=== PATIENT | male | born 1955 | race Caucasian/White ===

== ENCOUNTER 2020-08-25 13:45 | Emergency (ER) | payer BC ==
[~2020-08-25] VITALS: Ht 170.2 cm; Wt 65.8 kg
--- NOTE | 2020-08-25 13:55 | NUR ---
ED Nurse Note: Patient was BIBA due to fall, patient c/o right wrist pain 10/10. Stated painful to move the arm denies any loc. Patient presented with swollen right arm, AAO x4, VSS at this time.
[2020-08-25 13:58] VITALS: BP 156/88
[2020-08-25] MEDS ORDERED: HYDROcodone/Acetamin 5/325 tab ORAL ONE (14:00)
--- NOTE | 2020-08-25 14:40 | NUR ---
ED Nurse Note: X ray at bed side
[2020-08-25] MEDS ORDERED: Bupivacaine 0.5% Inj 30 ml vial INJ ONE (15:00)
--- NOTE | 2020-08-25 15:01 | NUR ---
ED Nurse Note: Patient's right arm was placed in a finger trap
--- NOTE | 2020-08-25 16:16 | NUR ---
ED Nurse Note: sugar tounge was applyed by MARIA M Ospina and Cliff, patient tolerated procedure well
--- NOTE | 2020-08-25 16:28 | NUR ---
ED Nurse Note: X ray at bed side
--- NOTE | 2020-08-25 16:47 | Emergency Room Report ---
History of Present Illness General Chief Complaint: Upper Extremity Injury Source: Patient Present Illness HPI 64 YO male presents to the ED CO 10/10 in severity right wrist pain and deformity after s/p fall from 6ft ladder in his backyard. Pt. reports he is right hand dominant. Pt. denies hitting his head or having LOC. He denies midline neck or back pain. Pt. reports mild 3/10 in severity ttp to the left kn ee. he reports he is weight bearing and ambulatory. Pt. denies taking blood thinning medications. He denies paresthesias. He denies incontinence. Allergies: Coded Allergies: No Known Allergies (Unverified , 08/25/20) COVID-19 Screening Contact w/high risk pt: No Experienced COVID-19 symptoms?: No COVID-19 Testing performed [employer]: No Patient History Past Medical History: see triage record Past Surgical History: none Pertinent Family History: none Reviewed Nursing Documentation: PMH: Agreed; PSxH: Agreed Review of Systems All Other Systems: negative except mentioned in HPI Physical Exam Vital Signs Date Time Temp Pulse Resp B/P (MAP) Pulse Ox O2 Delivery O2 Flow Rate FiO2 08/25/20 13:45 98.2 78 16 156/88 (110) 98 Room Air Sp02 EP Interpretation: reviewed, normal General Appearance: no apparent distress, alert, GCS 15, non-toxic Head: normocephalic, atraumatic Eyes: bilateral eye normal inspection, bilateral eye PERRL ENT: hearing grossly normal, normal voice Neck: full range of motion Respiratory: lungs clear, normal breath sounds, speaking full sentences Cardiovascular #1: regular rate, rhythm, no edema, normal capillary refill Cardiovascular #2: 2+ radial (R), 2+ radial (L) Musculoskeletal: back normal, normal range of motion, gait/station normal, tender - right wrist, swelling - right wrist, other - visible deformity of the right wrist Neurologic: alert, motor strength/tone normal, oriented x3, sensory intact, responsive, speech normal Psychiatric: judgement/insight normal Skin: abrasion - left knee and anterior right mendenhall Procedures Additional Procedure Procedure Narrative WRIST REDUCTION WITH HEMATOMA BLOCK: -Verbal consent was obtained to reduce displaced distal radius fracture of the right arm. -Hematoma block was performed - ST numbed with 1cc of lidocaine using a 27G needle, then a 21g needle was inserted into the location of the fracture/hematoma until blood was easily pulled back into the syringe, remaining 9cc of lidocaine was administered. - 1 attempt to reduce displaced fracture was performed using manual traction. -Right arm Sugar-Tong Splint applied by construction tech. Pt. remains neurovascularly intact. -PT. tolerated procedure well and there were no complications. -Post reduction films were obtained which demonstrated significantly improved anatomical positioning of the distal radius. Medical Decision Making PA Attestation Dr. Brown is my supervising Physician whom patient management has been discussed with. Diagnostic Impression: Primary Impression: Radius distal fracture Qualified Codes: S52.502A - Unspecified fracture of the lower end of left radius, initial encounter for closed fracture Additional Impressions: Abrasions of multiple sites Contusion of knee, right Qualified Codes: S80.01XA - Contusion of right knee, initial encounter ER Course 64 YO male presents to the ED CO 10/10 in severity right wrist pain and deformity after s/p fall from 6ft ladder in his backyard. Pt. reports he is right hand dominant. Pt. denies hitting his head or having LOC. He denies midline neck or back pain. Pt. reports mild 3/10 in severity ttp to the left knee. he reports he is weight bearing and ambulatory. Pt. denies taking blood thinning medications. He denies paresthesias. He denies incontinence. Ddx considered but are not limited to Fracture, dislocation, contusion, Sprain/Strain/Spasm. Vital signs: are WNL, pt. is afebrile H&PE are most consistent with musculoskeletal injury will perform imaging to r/o fractures/dislocations. ORDERS: - X-ray Right wrist: Distal radius fracture- displaced. _ POST- REDUCTION X-RAY: improved anatomical positioning of the distal radius fx. ED INTERVENTIONS: - [place] PO 5mg - Hematoma Block of the right wrist. - Reduction of the displaced fracture using finger trap and manual manipulation. Right Sugar-tong Splint applied by construction tech. Pt. remains neurovascularly intact. --Right arm Sling applied by construction tech. Pt. remains neurovascularly intact. - PT. given a CD copy of his x-rays. Pt. already has a follow up appointment with Ortho for Friday at 2pm. DISCHARGE: At this time pt. is stable for d/c to home. Will provide printed patient care instructions, and any necessary prescriptions. Care plan and follow up instructions have been discussed with the patient prior to discharge. Other X-Ray Diagnostic Results Other X-Ray Diagnostic Results #1: X-Ray ordered: Right wrist - # of Views/Limited Vs Complete: 3 View Indication: Pain EP Interpretation: Yes MARIA M Xray: Interpretation reviewed, by supervising MD Interpretation: no dislocation, no soft tissue swelling, other - Displaced distal radius Fx. Electronically Signed by: Iza Guzman PA-C Other X-Ray Diagnostic Results #2: X-Ray ordered: Right wrist - POST reduction # of Views/Limited Vs Complete: 3 View Indication: Pain EP Interpretation: Yes MARIA M Xray: Interpretation reviewed, by supervising MD, and agrees with findings. Interpretation: no dislocation, no soft tissue swelling, other - Improved anatomical positioning of distal radius fracture Electronically Signed by: Iza Guzman PA-C Last Vital Signs Date Time Temp Pulse Resp B/P (MAP) Pulse Ox O2 Delivery O2 Flow Rate FiO2 08/25/20 14:35 98.2 08/25/20 13:58 16 156/88 98 Room Air 08/25/20 13:45 78 Status: improved Disposition: HOME, SELF-CARE Condition: Stable Scripts Bacitracin (Bacitracin) 28.4 Gm Oint...g. 1 APPLIC TOPIC THREE TIMES A DAY, #28.4 GM Prov: Iza Guzman 08/25/20 Ibuprofen* (MOTRIN*) 600 Mg Tablet 600 MG ORAL THREE TIMES A DAY, #20 TAB Prov: Iza Guzman 08/25/20 Hydrocodone Bit/Acetaminophen 5-325* (NORCO 5-325 TABLET*) 1 Each Tablet 1 TAB ORAL Q6H PRN for FOR PAIN, #12 TAB 0 Refills Prov: Iza Guzman 08/25/20 Referrals: Clinton Cole MD (PCP) Patient Instructions: Wrist Fracture Additional Instructions: Take medications as directed. Do not drink alcohol, drive, or operate heavy machinery while taking [place] as this may cause drowsiness. Follow up with an [facility] in ON FRIDAY, even if your symptoms have resolved. --Please review list of primary care clinics, if you do not already have a primary care provider who can give you an Orthopedic Referral. Return sooner to ED if new symptoms occur, or current symptoms become worse. - Please note that this Emergency Department Report was dictated using [email or web address] and test preparer technology software, occasionally this can lead to erroneous entry secondary to interpretation by the dictation equipment. Iza Guzman Aug 25, 2020 16:47
[2020-08-25] MEDS ORDERED: IBUPROFEN600 M1 ORAL (16:49)
[2020-08-25] MEDS ORDERED: BACITRACIN15 GM TOPIC (16:49)
[2020-08-25] MEDS ORDERED: NORCO 5-325 TA1 EAC1 ORAL (16:49)
[2020-08-25 16:58] VITALS: BP 156/88
--- NOTE | 2020-08-25 17:00 | NUR ---
ED Nurse Note: Pt cleared by health care Provider for discharge. DC instructions/prescription was given and explained to pt and verbalized understanding of teachings. All medical deviecs such as ID band removed. Pt is AAO x4, ambulatory and left with all personal belongings.
--- NOTE | 2020-08-25 17:28 | Diagnostic Imaging Report ---
Indication: Pain, postreduction Technique: 2 views of the right wrist Comparison: 2 hours earlier Findings: Interim splinting of previously demonstrated right distal fracture. Markedly improved anatomic alignment after closed reduction. Ulnar styloid fracture again demonstrated Impression: Improved alignment of previously demonstrated distal radial fracture, status post closed reduction
--- NOTE | 2020-08-25 17:29 | Diagnostic Imaging Report ---
Clinical Indication:Pain, trauma Technique: 3 views of the right wrist Comparison: None Findings: There is a comminuted fracture of the distal radius. This is posteriorly displaced, overriding, and appears to involve the articular surface. No carpal fracture. Postreduction image demonstrates an ulnar styloid fracture, although this is not demonstrated on these images, may have displaced along with the radial fragments Impression: Positive for distal radial fracture
== END 2020-08-25 17:02 | disposition home or self-care (01) ==
LOC: EDBD 13:45 → EMR 14:23
DX: S52.502A Unspecified fracture of the lower end of left radius, initial encounter for closed fracture (principal); S80.01XA Contusion of right knee, initial encounter; S80.811A Abrasion, right lower leg, initial encounter; W11.XXXA Fall on and from ladder, initial encounter; Y92.9 Unspecified place or not applicable
CPT/HCPCS: 25605; 73110; 99284; J3490